=== PATIENT | male | born 1965 | race Caucasian/White ===

== ENCOUNTER → 2020-02-06 | Outpatient (CLI) | payer OTHER ==
[2020-02-06 16:17] LABS: ALBUMIN 4.1 g/dL (3.5-5.0); ALKALINE PHOSPHATASE 132 U/L (38-126); AMYLASE 54 U/L (30-110); ANION GAP 8 (5-19); ASPARTATE AMINO TRANSFERASE 47 U/L (17-59); BILIRUBIN,DIRECT 0.1 mg/dL (0.0-0.4); BILIRUBIN,TOTAL 1.2 mg/dL (0.2-1.3); BLOOD UREA NITROGEN 11 mg/dL (7-20); CALCIUM 9.4 mg/dL (8.4-10.2); CARBON DIOXIDE 26 mmol/L (22-30); CHLORIDE 102 mmol/L (98-107); GLUCOSE 90 mg/dL (75-110); POTASSIUM 4.3 mmol/L (3.6-5.0); TOTAL PROTEIN 7.7 g/dL (6.3-8.2)
== END ==
LOC: CCC 15:06
DX: Z00.00 Encounter for general adult medical examination without abnormal findings (principal)
CPT/HCPCS: 36415; 80053; 82150; 83036; 83690; 83735; 86701

== ENCOUNTER → 2020-02-16 | Outpatient (CLI) | payer OTHER | LOC: CCC 14:47 | DX: Z00.00 Encounter for general adult medical examination without abnormal findings (principal) | CPT/HCPCS: 36415; 81270 ==

== ENCOUNTER → 2020-03-03 | Outpatient (CLI) | payer OTHER ==
--- NOTE | 2020-03-03 15:30 | RADIOLOGY REPORT (SQ) ---
EXAM DESCRIPTION: ANKLE RIGHT AP/LATERAL IMAGES COMPLETED DATE/TIME: 03/03/2020 3:09 pm REASON FOR STUDY: PAIN IN RIGHT ANKLE AND JOINTS OF RIGHT FOOT R30.0 DYSURIA M25.571 PAIN IN RIGHT ANKLE AND JOINTS OF RIGHT FOOT M25.471 EFFUSION, RIGHT ANKLE COMPARISON: None. NUMBER OF VIEWS: Three views. TECHNIQUE: AP, lateral, and oblique radiographic images acquired of the right ankle. LIMITATIONS: None. FINDINGS: MINERALIZATION: Normal. BONES: Displaced fracture of the medial malleolus. Additional cortical lucency noted within the dist al tibia along tibiotalar joint. Medial distal tibial plate and screw fixation hardware. Os peroneu m. JOINTS: Widening of the medial ankle mortise. SOFT TISSUES: Soft tissue swelling about the ankle. OTHER: No other significant finding. IMPRESSION: Medial plate and screw distal tibial fixation hardware. There is a displaced fracture o f the medial malleolus with widening at the medial ankle mortise. Additional cortical lucency of the distal tibia along the tibiotalar joint. Evaluation of chronicity and interval changes limited seco ndary to lack of prior exams. TECHNICAL DOCUMENTATION: JOB ID: [id number] 2010 [employer]- All Rights Reserved Reading location - IP/workstation name: [email or web address]
[2020-03-03 17:00] LABS: APPEARANCE,URINE SLIGHTLY-CLOUDY; BILIRUBIN,URINE NEGATIVE (NEGATIVE); COLOR,URINE YELLOW; GLUCOSE, URINE NEGATIVE (NEGATIVE); KETONES,URINE NEGATIVE (NEGATIVE); LEUKOCYTE ESTERASE,URINE MODERATE (NEGATIVE); NITRITE,URINE POSITIVE (NEGATIVE); PROTEIN,URINE 30 mg/dL (NEGATIVE); URINE SPECIFIC GRAVITY 1.014; UROBILINOGEN,URINE NEGATIVE mg/dL (<2.0)
== END ==
LOC: CCC 14:51
PROVIDERS: ATTEND Physician Assistant Surgical
DX: S82.51XA Displaced fracture of medial malleolus of right tibia, initial encounter for closed fracture (principal); X58.XXXA Exposure to other specified factors, initial encounter; M25.571 Pain in right ankle and joints of right foot; M25.471 Effusion, right ankle; R30.0 Dysuria
CPT/HCPCS: 81001; 87086; 87088

== ENCOUNTER 2020-03-08 15:58 | Emergency (ER) | payer SELFPAY ==
[2020-03-08 16:03] VITALS: BP 156/95
--- NOTE | 2020-03-08 16:54 | ER Document Report ---
HPI - HPI Time Seen by Provider: 03/08/20 16:18 Pain Level: 3 Notes: 54-year-old male patient presenting to the emergency department with concern for right ankle injury. Patient reports approximately 2 weeks ago he tripped, rolling his right ankle, he believes that he may have refractured his ankle. He reports having surgery done to this ankle approximately 11 months ago in [place]. Past Medical History - General Information source: Patient - Social History Smoking Status: Current Every Day Smoker Chew tobacco use (# tins/day): No Frequency of alcohol use: None Drug Abuse: None Family History: Reviewed & Not Pertinent Patient has suicidal ideation: No Patient has homicidal ideation: No Vertical Provider Document - CONSTITUTIONAL Notes: PHYSICAL EXAMINATION: GENERAL: Well-appearing, well-nourished and in no acute distress. HEAD: Atraumatic, normocephalic. EYES: Pupils equal round extraocular movements intact, conjunctiva are normal. ENT: Nares patent NECK: Normal range of motion LUNGS: No respiratory distress Musculoskeletal: Normal range of motion, swelling noted to medial right ankle, strong dorsalis pedis pulse, cap refill less than 3 seconds. NEUROLOGICAL: Normal speech, normal gait. PSYCH: Normal mood, normal affect. SKIN: Warm, Dry, normal turgor, no rashes or lesions noted. Course - Re-evaluation Re-evalutation: Patient had outpatient x-rays done by the [facility] 4 days ago. Apparently they called him today with the results. Patient does have a displaced fracture of the malleolus. I called and spoke with on-call orthopedic surgeon Dr. jarquin. We discussed the fact that patient had recently had surgery done at [facility] in [place]. Patient will follow up with his orthopedic surgeon, if he is unable to be seen there Dr. Jarquin said he will see him in the office. Patient placed in a splint and discharged home. - Vital Signs Vital signs: Temp Pulse Resp BP Pulse Ox 98.5 F 72 20 156/95 H 98 03/08/20 16:15 03/08/20 16:02 03/08/20 16:02 03/08/20 16:02 03/08/20 16:02 Procedures - Immobilization Right ankle Pre-Proc Neuro Vasc Exam: Normal Immobilizer type: Crutches, Short Leg Posterior Performed by: PCT Post-Proc Neuro Vasc Exam: Normal Discharge - Discharge Clinical Impression: Closed malleolar fracture Qualifiers: Encounter type: initial encounter Laterality: right Qualified Code(s): S82.891A - Other fracture of right lower leg, initial encounter for closed fracture Condition: Stable Disposition: HOME, SELF-CARE Additional Instructions: There is a fracture that is displaced of the medial malleolus. I need you to call your orthopedic surgeon to try to follow-up with him. Let him know we put you in a temporary splint and you are in need of follow-up. If for some reason you are unable to follow-up with your orthopedic surgeon you may follow-up with Dr. Jarquin. Prescriptions: Hydrocodone/Acetaminophen [Welch 5-325 mg Tablet] 1 tab PO Q6H PRN #12 tablet PRN Reason: For Pain Referrals: ANA ROBISON MD [NO LOCAL MD] - Follow up as needed MALKA JARQUIN DO [ACTIVE STAFF] - Follow up as needed
== END 2020-03-08 17:02 | disposition home or self-care (01) ==
LOC: ER 15:58
DX: S82.891A Other fracture of right lower leg, initial encounter for closed fracture (principal); X50.0XXA Overexertion from strenuous movement or load, initial encounter; F17.200 Nicotine dependence, unspecified, uncomplicated
CPT/HCPCS: 99283

== ENCOUNTER → 2020-08-11 | Outpatient (CLI) | payer OTHER ==
[2020-08-11 12:40] LABS: ABSOLUTE BASOPHILS # (AUTO) 0.1 10^3/uL (0.0-0.2); ABSOLUTE EOSINOPHILS # (AUTO) 0.6 10^3/uL (0.0-0.6); ABSOLUTE LYMPHOCYTES (AUTO) 2.4 10^3/uL (0.5-4.7); ABSOLUTE MONOCYTES (AUTO) 0.7 10^3/uL (0.1-1.4); ABSOLUTE NEUT (AUTO) 5.9 10^3/uL (1.7-8.2); BASOPHILS % (AUTO) 0.9 % (0-2); EOSINOPHILS % (AUTO) 6.1 % (0-6); HEMATOCRIT 48.5 % (37.9-51.0); HEMOGLOBIN 17.4 g/dL (13.5-17.0); LYMPHOCYTES % (AUTO) 24.3 % (13-45); MEAN CORPUSCULAR HEMOGLOBIN 34.1 pg (27.0-33.4); MEAN CORPUSCULAR HGB CONC 35.9 g/dL (32.0-36.0); MEAN CORPUSCULAR VOLUME 95 fl (80-97); MONOCYTES % (AUTO) 7.4 % (3-13); PLATELET COUNT 267 10^3/uL (150-450); RED BLOOD COUNT 5.11 10^6/uL (4.35-5.55); SEGMENTED NEUTROPHILS % (AUTO) 61.3 % (42-78); TOTAL CELLS COUNTED % (AUTO) 100 %; WHITE BLOOD COUNT 9.7 10^3/uL (4.0-10.5)
--- NOTE | 2020-08-11 13:06 | RADIOLOGY REPORT (SQ) ---
EXAM DESCRIPTION: ANKLE RIGHT COMPLETE IMAGES COMPLETED DATE/TIME: 08/11/2020 12:49 pm REASON FOR STUDY: PAIN IN UNSPECFIED JOINT M15.0 PRIMARY GENERALIZED (OSTEO)ARTHRITIS B19.20 UNSPE CIFIED VIRAL HEPATITIS C WITHOUT HEPATIC COMA Z87.440 PERSONAL HISTORY OF URINARY (TRACT) INFECTIONS COMPARISON: 03/03/2020 NUMBER OF VIEWS: Three views. TECHNIQUE: AP, lateral, and oblique radiographic images acquired of the right ankle. LIMITATIONS: None. FINDINGS: MINERALIZATION: Normal. BONES: There is suggestion of some healing involving the fracture at the medial malleolus. Medial d istal tibial plate and screw fixation hardware again identified. No acute fracture or dislocation. JOINTS: Widening of the medial ankle mortise again identified. SOFT TISSUES: Significant decrease in the soft tissue swelling about the ankle since the previous ex amination. OTHER: No other significant finding. IMPRESSION: 1. Since the prior examination dated 03/03/2020, significant decrease in the soft tissue swelling about the ankle. 2. Post surgical changes with hardware distal tibia, unchanged finding. Suggested healing of the me dial malleous fracture. 3. No acute osseous findings. TECHNICAL DOCUMENTATION: JOB ID: [id number] 2010 [employer]- All Rights Reserved Reading location - IP/workstation name: [email or web address]
--- NOTE | 2020-08-11 13:14 | RADIOLOGY REPORT (SQ) ---
EXAM DESCRIPTION: HIPS BILATERAL IMAGES COMPLETED DATE/TIME: 08/11/2020 12:49 pm REASON FOR STUDY: PAIN IN UNSPECIFIED JOINT M15.0 PRIMARY GENERALIZED (OSTEO)ARTHRITIS B19.20 UNSP ECIFIED VIRAL HEPATITIS C WITHOUT HEPATIC COMA Z87.440 PERSONAL HISTORY OF URINARY (TRACT) INFECTION S COMPARISON: None. NUMBER OF VIEWS: Two views TECHNIQUE: AP pelvis and additional frog-leg view of both hips. LIMITATIONS: None. FINDINGS: MINERALIZATION: Normal. HIPS: No acute fracture or dislocation. No worrisome bone lesions. PELVIS AND SACRUM: No acute fracture or dislocation. No worrisome bone lesions. PUBIS AND ISCHIUM: No acute fracture. LOWER LUMBAR SPINE: No significant findings as visualized. SOFT TISSUES: No findings. OTHER: No other significant finding. IMPRESSION: NEGATIVE STUDY OF THE PELVIS AND HIPS. TECHNICAL DOCUMENTATION: JOB ID: [id number] 2010 [employer]- All Rights Reserved Reading location - IP/workstation name: [email or web address]
--- NOTE | 2020-08-11 13:14 | RADIOLOGY REPORT (SQ) ---
EXAM DESCRIPTION: LUMBAR SPINE COMPLETE IMAGES COMPLETED DATE/TIME: 08/11/2020 12:49 pm REASON FOR STUDY: PAIN IN UNSPECIFIED JOINT M15.0 PRIMARY GENERALIZED (OSTEO)ARTHRITIS B19.20 UNSP ECIFIED VIRAL HEPATITIS C WITHOUT HEPATIC COMA Z87.440 PERSONAL HISTORY OF URINARY (TRACT) INFECTION S COMPARISON: None. NUMBER OF VIEWS: Five views including obliques. TECHNIQUE: AP, lateral, oblique, and sacral radiographic images acquired of the lumbar spine. LIMITATIONS: None. FINDINGS: MINERALIZATION: Normal. SEGMENTATION: Normal. No transitional anatomy. ALIGNMENT: Normal. VERTEBRAE: Maintained height. No fracture or worrisome bone lesion. DISCS: The disc narrowing from L3-S1, most prominently at L5-S1. POSTERIOR ELEMENTS: Hypertrophic facet changes from L4-S1. HARDWARE: None in the spine. PARASPINAL SOFT TISSUES: Normal. PELVIS: Intact as visualized. No fractures or worrisome bone lesions. SI joints intact. OTHER: No other significant finding. IMPRESSION: Degenerative disc disease. Facet arthropathy. TECHNICAL DOCUMENTATION: JOB ID: [id number] 2010 [employer]- All Rights Reserved Reading location - IP/workstation name: [email or web address]
[2020-08-11 13:17] LABS: ERYTHROCYTE SEDIMENTATION RATE 17 mm/hr (0-20)
--- NOTE | 2020-08-11 13:17 | RADIOLOGY REPORT (SQ) ---
EXAM DESCRIPTION: HAND BILATERAL 3 VIEWS IMAGES COMPLETED DATE/TIME: 08/11/2020 12:49 pm REASON FOR STUDY: PAIN IN UNSPECIFIED JOINT M15.0 PRIMARY GENERALIZED (OSTEO)ARTHRITIS B19.20 UNSP ECIFIED VIRAL HEPATITIS C WITHOUT HEPATIC COMA Z87.440 PERSONAL HISTORY OF URINARY (TRACT) INFECTION S COMPARISON: None. EXAM PARAMETERS: NUMBER OF VIEWS: Three views right hand. Three views left hand. TECHNIQUE: AP, lateral and oblique radiographic images acquired of bilateral hands. LIMITATIONS: None. FINDINGS: RIGHT HAND: MINERALIZATION: Normal. BONES: No acute fracture or dislocation. No worrisome bone lesions. No significant osteophytes. JOINTS: No erosions. No mirta-articular osteopenia. No chondrocalcinosis. SOFT TISSUES: No swelling. No calcifications. OTHER: No other significant finding. LEFT HAND: MINERALIZATION: Normal. BONES: No acute fracture or dislocation. No worrisome bone lesions. No significant osteophytes. JOINTS: No erosions. No mirta-articular osteopenia. No chondrocalcinosis. SOFT TISSUES: Small linear radiopaque foreign body in the soft tissues at the base of the 1st proxima l phalanx. OTHER: No other significant finding. IMPRESSION: Small linear foreign body in the soft tissues at the base of the left 1st proximal phala nx. No other significant findings. TECHNICAL DOCUMENTATION: JOB ID: [id number] [employer]- All Rights Reserved Reading location - IP/workstation name: [email or web address]
--- NOTE | 2020-08-11 13:20 | RADIOLOGY REPORT (SQ) ---
EXAM DESCRIPTION: FOOT BILATERAL 3 VIEWS IMAGES COMPLETED DATE/TIME: 08/11/2020 12:50 pm REASON FOR STUDY: PAIN IN UNSPECIFIED JOINT M15.0 PRIMARY GENERALIZED (OSTEO)ARTHRITIS B19.20 UNSP ECIFIED VIRAL HEPATITIS C WITHOUT HEPATIC COMA Z87.440 PERSONAL HISTORY OF URINARY (TRACT) INFECTION S COMPARISON: None. NUMBER OF VIEWS: Three views. TECHNIQUE: AP, lateral and oblique radiographic images acquired of the right and left foot. LIMITATIONS: None. FINDINGS: MINERALIZATION: Normal. BONES: No acute fracture or dislocation. JOINTS: Moderate degenerative joint changes in the right 1st metatarsal-phalangeal joint. SOFT TISSUES: Small curvilinear soft tissue foreign body near the base of the left 1st distal phalanx . OTHER: No other significant finding. IMPRESSION: Degenerative joint changes in the right 1st metatarsal-phalangeal joint. Curvilinear ra diopaque foreign body near the base of the left 1st distal phalanx. TECHNICAL DOCUMENTATION: JOB ID: [id number] 2010 [employer]- All Rights Reserved Reading location - IP/workstation name: [email or web address]
[2020-08-12 10:00] LABS: HEPATITS B SURFACE ANTIGEN Negative (Negative)
== END ==
LOC: CCC 11:27
DX: M15.0 Primary generalized (osteo)arthritis (principal); M51.36 Other intervertebral disc degeneration, lumbar region; B19.20 Unspecified viral hepatitis C without hepatic coma; Z87.440 Personal history of urinary (tract) infections
CPT/HCPCS: 36415; 72110; 73522; 81270; 85025; 85652; 86140; 86317; 87086; 87088; 87340

== ENCOUNTER → 2020-08-20 | Outpatient (CLI) | payer OTHER ==
--- NOTE | 2020-08-20 17:10 | RADIOLOGY REPORT (SQ) ---
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 TECHNIQUE: Pre and post void bladder imaging. LIMITATIONS: None. FINDINGS: PREVOID BLADDER VOLUME: 49 ml. POST VOID BLADDER VOLUME: 1.4 ml. OTHER: Prostate gland is normal and measures 3.7 x 3 x 3.2 cm. IMPRESSION: NO SONOGRAPHIC ABNORMALITY IN THE BLADDER. BLADDER VOLUMES ABOVE. TECHNICAL DOCUMENTATION: JOB ID: [id number] 2010 [employer]- All Rights Reserved Reading location - IP/workstation name: [email or web address]
--- NOTE | 2020-08-20 17:12 | RADIOLOGY REPORT (SQ) ---
EXAM DESCRIPTION: SKULL 1-3 VIEWS IMAGES COMPLETED DATE/TIME: 08/20/2020 4:53 pm REASON FOR STUDY: MRI CLEARANCE N39.0 URINARY TRACT INFECTION, SITE NOT SPECIFIED R35.1 NOCTURIA G 57.12 MERALGIA PARESTHETICA, LEFT LOWER LIMB COMPARISON: None. NUMBER OF VIEWS: Two Views. TECHNIQUE: Busby and lateral views were obtained. LIMITATIONS: None. FINDINGS: SKULL: Sutures are normal. No skull fractures. OTHER: There appears to be mucoperiosteal thickening in the right maxillary sinus. IMPRESSION: Right maxillary sinus disease. No skull fractures. TECHNICAL DOCUMENTATION: JOB ID: [id number] 2010 [employer]- All Rights Reserved Reading location - IP/workstation name: [email or web address]
--- NOTE | 2020-08-21 10:55 | RADIOLOGY REPORT (SQ) ---
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 TECHNIQUE: Sagittal and Axial imaging includes T1, T2, STIR and gradient echo sequences. Coronal T2/ HASTE imaging. LIMITATIONS: None. FINDINGS: VISUALIZED UPPER ABDOMEN: Limited evaluation. No acute or suspicious findings suggested. SEGMENTATION: No transitional anatomy. The lowest well-developed disc space is labeled L5-S1. ALIGNMENT: Anatomic. VERTEBRAE: Intact. BONE MARROW: Chronic endplate changes L5-S1. DISC SIGNAL: Desiccation multiple levels. POSTERIOR ELEMENTS: Generally intact. No pars defect evident. HARDWARE: None in the spine. CORD AND CONUS: Normal in size and signal intensity. Conus at the appropriate level. SOFT TISSUES: No aortic aneurysm seen. No bulky retroperitoneal adenopathy or mass. No paraspinal mas s or fluid. L1-L2: No significant spinal stenosis or exit foraminal stenosis. L2-L3: No significant spinal stenosis or exit foraminal stenosis. L3-L4: No significant spinal stenosis or exit foraminal stenosis. L4-L5: Mild spinal stenosis due to disc bulge and facet arthropathy. Mild neural foraminal narrowing bilaterally. L5-S1: Collapse of the disc space. Facet arthropathy. Mild neural foraminal narrowing bilaterally. LOWER THORACIC: Incompletely imaged. No stenosis seen. SACRUM: Visualized upper sacrum intact. OTHER: No other significant findings. IMPRESSION: Spondylosis and facet arthropathy. Mild spinal stenosis L4-5. TECHNICAL DOCUMENTATION: JOB ID: [id number] [employer]- All Rights Reserved Reading location - IP/workstation name: [email or web address]
== END ==
LOC: RAD 16:00
PROVIDERS: ATTEND Internal Medicine
DX: M47.817 Spondylosis without myelopathy or radiculopathy, lumbosacral region (principal); M51.87 Other intervertebral disc disorders, lumbosacral region; M54.5 Low back pain; N39.0 Urinary tract infection, site not specified; J32.0 Chronic maxillary sinusitis; R35.1 Nocturia
CPT/HCPCS: 70250; 72148; 76857

== ENCOUNTER → 2020-09-13 | Outpatient (CLI) | payer OTHER ==
[2020-09-13 13:49] LABS: APPEARANCE,URINE CLEAR; BILIRUBIN,URINE NEGATIVE (NEGATIVE); COLOR,URINE YELLOW; GLUCOSE, URINE NEGATIVE (NEGATIVE); KETONES,URINE NEGATIVE (NEGATIVE); LEUKOCYTE ESTERASE,URINE NEGATIVE (NEGATIVE); NITRITE,URINE NEGATIVE (NEGATIVE); PROTEIN,URINE NEGATIVE (NEGATIVE); URINE SPECIFIC GRAVITY 1.019
== END ==
LOC: CCC 13:04
DX: Z01.818 Encounter for other preprocedural examination (principal); R35.1 Nocturia; B18.2 Chronic viral hepatitis C
CPT/HCPCS: 36415; 81001; 81270; 87086